=== PATIENT | male | born 1960 | race Caucasian/White ===

== ENCOUNTER 2017-01-01 22:12 | Inpatient (IN) | payer OTHER ==
--- NOTE | 2017-01-01 22:45 | HP ---
CIWA Score - CIWA Score Nausea/Vomitin-Mild Nausea/No Vomiting Muscle Tremors: 3 Anxiety: 2 Agitation: 1-Slight > Activity Paroxysmal Sweats: 1-Minimal Palms Moist Orientation: 1-Uncertain about Date Tacttile Disturbances: 2-Mild Itch/Numbness/Burn Auditory Disturbances: 1-Very Mild Visual Disturbances: 1-Very Mild Sensitivity Headache: 1-Very Mild CIWA-Ar Total Score: 14 Admission ROS BHS - HPI Chief Complaint: WITHDRAWAL SYMPTOMS Allergies/Adverse Reactions: Allergies Allergy/AdvReac Type Severity Reaction Status Date / Time azithromycin Allergy Verified 01/01/17 22:43 History of Present Illness: 56 Y.O. MAN WITH AN EXTENSIVE HISTORY OF ALCOHOL DEPENDENCE IS SEEKING DETOX. THIS IS HIS FIRST ADMISSION TO [facility] BUT HE REPORTS HE COMPLETED DETOX AT ANOTHER FACILITY PREVIOUSLY. LONGEST PERIOD OF SOBRIETY HAS BEEN 2 YEARS. Exam Limitations: No Limitations - Ebola screening Have you traveled outside of the country in the last 21 days: No Have you had contact with anyone from an Ebola affected area: No Do you have a fever: No - Review of Systems Constitutional: Loss of Appetite, Night Sweats, Changes in sleep EENT: reports: Blurred Vision Respiratory: reports: Wheezing Cardiac: reports: No Symptoms Reported GI: reports: No Symptoms Reported : reports: No Symptoms Reported Musculoskeletal: reports: No Symptoms Reported Integumentary: reports: Bruising (RIGHT HAND) Neuro: reports: Headache, Seizure (ETOH RELATED 10 YEARS AGO), Tremors Endocrine: reports: No Symptoms Reported Hematology: reports: No Symptoms Reported Psychiatric: reports: Anxious, Depressed Other Systems: Reviewed and Negative Patient History - Patient Medical History Hx Anemia: No Hx Asthma: Yes Hx Chronic Obstructive Pulmonary Disease (COPD): No Hx Cancer: No Hx Cardiac Disorders: No Hx Congestive Heart Failure: No Hx Hypertension: No Hx Hypercholesterolemia: No Hx Pacemaker: No HX Cerebrovascular Accident: No Hx Seizures: Yes (LAST WAS 10 YEARS PRIOR ) Hx Dementia: No Hx Diabetes: No Hx Gastrointestinal Disorders: No Hx Liver Disease: No Hx Genitourinary Disorders: No Hx Sexually Transmitted Disorders: No Hx Renal Disease (ESRD): No Hx Thyroid Disease: No Hx Human Immunodeficiency Virus (HIV): No Hx Hepatitis C: No Hx Depression: Yes Hx Suicide Attempt: No Hx Bipolar Disorder: No Hx Schizophrenia: No - Patient Surgical History Past Surgical History: No - PPD History Previous Implant?: Yes Documented Results: Negative w/o proof Implanted On Prior R Admission?: No PPD to be Administered?: Yes - Reproductive History Patient is a Female of Child Bearing Age (11 -55 yrs old): No - Smoking Cessation Smoking history: Current every day smoker Aproximately how many cigarettes per day: 10 Hx Chewing Tobacco Use: No Initiated information on smoking cessation: Yes 'Breaking Loose' booklet given: 01/01/17 - Substance & Tx. History Hx Alcohol Use: Yes Hx Substance Use: No Substance Use Type: Alcohol Hx Substance Use Treatment: Yes - Substances Abused Alcohol Route: Oral Frequency: Daily Amount used: 1 PINT OF LIQUOR Age of first use: 14 Date of Last Use: 12/31/16 Family Disease History - Family Disease History Family Disease History: Heart Disease: Father ( ), [place]: Mother () , Brother ([place]- ) Admission Physical Exam [facility] - Vital Signs Vital Signs: Last Vital Signs Temp Pulse Resp BP Pulse Ox 98.9 F 112 H 20 100/77 01/01/17 22:43 01/01/17 22:43 01/01/17 22:43 01/01/17 22:43 - Physical General Appearance: Yes: Tremorous, Anxious HEENTM: Yes: Hearing grossly Normal, Normocephalic, Normal Voice Respiratory: Yes: Chest Non-Tender, Lungs Clear, Normal Breath Sounds, No Respiratory Distress, No Accessory Muscle Use Neck: Yes: No masses,lesions,Nodules, Trachea in good position Breast: Yes: Breast Exam Deferred Cardiology: Yes: Regular Rhythm, S1, S2, Tachycardia Abdominal: Yes: Flat, Soft Genitourinary: Yes: Other (NO COMPLAINTS REPORTED) Back: Yes: Normal Inspection Musculoskeletal: Yes: Gait Steady, Pelvis Stable Extremities: Yes: Normal Inspection, Normal Range of Motion, Non-Tender, Tremors Neurological: Yes: Alert, Normal Mood/Affect, Normal Response Integumentary: Yes: Normal Color, Dry, Warm Lymphatic: Yes: Within Normal Limits - Diagnostic (1) Alcohol dependence with uncomplicated withdrawal Current Visit: Yes Status: Chronic (2) Nicotine dependence Current Visit: Yes Status: Chronic (3) Asthma Current Visit: Yes Status: Chronic Cleared for Admission [facility] - Detox or Rehab [facility] Level of Care: Medically Managed Detox Regimen/Protocol: Librium
[2017-01-01 22:49] VITALS: BMI 21.1
[2017-01-01] MEDS ORDERED: MAGNESIUM CITRATE 300 ML BOTTLE PO PRN (22:59)
[2017-01-01] MEDS ORDERED: MENTHOL/PHENOL 1 EACH UD MM PRN (22:59)
[2017-01-01] MEDS ORDERED: diphenhydrAMINE HCL 50 MG CAPSULE PO PRN (22:59)
[2017-01-01] MEDS ORDERED: LOPERAMIDE HCL 2 MG CAPSULE PO PRN (22:59)
[2017-01-01] MEDS ORDERED: ACETAMINOPHEN 325 MG TABLET (FP) PO PRN (22:59)
[2017-01-01] MEDS ORDERED: chlordiazePOXIDE HCL 25 MG CAPSULE PO PRN (22:59)
[2017-01-01] MEDS ORDERED: MAGNESIUM HYDROX 2400MG/30ML ORAL SUSPENSION 30 ML CUP PO PRN (22:59)
[2017-01-01] MEDS ORDERED: chlordiazePOXIDE HCL 25 MG CAPSULE PO ONE (22:59)
[2017-01-01] MEDS ORDERED: P-EPHED 60MG/TRIPROLIDI 2.5MG TABLET PO PRN (22:59)
[2017-01-01] MEDS ORDERED: guaiFENesin/D-METHORPHAN HB 10 ML UNIT-DOSE CUPS PO PRN (22:59)
[2017-01-01] MEDS ORDERED: hydrOXYzine PAMOATE 50 MG CAPSULE (FP) PO PRN (22:59)
[2017-01-01] MEDS ORDERED: IBUPROFEN 400 MG TABLET (FP) PO PRN (22:59)
[2017-01-02] MEDS: chlordiazePOXIDE HCL 25 MG CAPSULE PO SCH ×5 (05:26→22:35)
[2017-01-02] MEDS ORDERED: ALBUTEROL SO4 2.5/IPRATROPIUM 0.5 INH SOL 3 ML VIAL.NEB. NEB ONE (09:06)
[2017-01-02] MEDS ORDERED: ALBUTEROL SO4 2.5/IPRATROPIUM 0.5 INH SOL 3 ML VIAL.NEB. NEB PRN (09:07)
--- NOTE | 2017-01-02 09:26 | PN ---
S CIWA - CIWA Score Nausea/Vomitin-No Nausea/No Vomiting Muscle Tremors: 4-Moderate,w/Arms Extend Anxiety: 4-Mod. Anxious/Guarded Agitation: 3 Paroxysmal Sweats: 3 Orientation: 0-Oriented Tacttile Disturbances: 0-None Auditory Disturbances: 0-None Visual Disturbances: 0-None Headache: 0-None Present CIWA-Ar Total Score: 14 BHS Progress Note (SOAP) Subjective: Anxiety,tremors,sweating,interrupted sleep,restless. Objective: 01/02/17 09:25 Vital Signs - 8 hr 01/02/17 01/02/17 03:23 06:12 Temperature 99.3 F Pulse Rate 103 H Respiratory 18 18 Rate Blood Pressure 120/79 Lungs : Bilateral mild expiratory wheezing Assessment: 01/02/17 09:25 Withdrawal sx. Asthma Plan: Continue detox Duoned stat then QID symbicort bid
[2017-01-02 10:01] LABS: URINE APPEARANCE CLEAR; URINE BILIRUBIN NEGATIVE (NEGATIVE); URINE BLOOD NEGATIVE (NEGATIVE); URINE COLOR YELLOW; URINE GLUCOSE (UA) NEGATIVE (NEGATIVE); URINE KETONE NEGATIVE (NEGATIVE); URINE LEUK ESTERASE NEGATIVE (NEGATIVE); URINE NITRITE NEGATIVE (NEGATIVE); URINE PROTEIN NEGATIVE (NEGATIVE); URINE UROBILINOGEN 2.0 E.U/dl E.U./dl (0.2-1.0)
[2017-01-02 10:16] LABS: ALBUMIN 3.5 g/dl (3.4-5.0); ALK PHOS 84 U/L (45-117); ANION GAP 13 (8-16); BILIRUBIN,TOTAL 0.4 mg/dL (0.2-1.0); CALCIUM 9.1 mg/dL (8.5-10.1); CO2 29 mmol/L (21-32); CREATININE 0.9 mg/dL (0.7-1.3); GLUCOSE,RANDOM 104 mg/dL (74-106); SGOT/AST 90 U/L (15-37); SGPT/ALT 79 U/L (12-78); TOT PROT 6.6 g/dl (6.4-8.2)
[2017-01-02 10:27] LABS: MCH 32.4 pg (25.7-33.7); MCHC 33.3 g/dl (32.0-35.9); MEAN CELL VOLUME 97.4 fl (80-96); MEAN PLT VOLUME 9.2 fl (7.5-11.1); PLATELET COUNT 179 K/MM3 (134-434); RDW 14.9 % (11.9-15.9); WHITE BLOOD COUNT 3.3 K/mm3 (4.0-10.0)
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
[2017-01-02] MEDS: PRENATAL VITAMINS W/ FOLIC ACID TABLET (FP) PO SCH (10:53)
[2017-01-02] MEDS: BUDESONIDE/FORMETEROL FUMARATE 80/4.5 mcg INHALER IH SCH ×2 (10:54→22:34)
--- NOTE | 2017-01-02 11:39 | EKG ---
Test Reason : Blood Pressure : / mmHG Vent. Rate : 108 BPM Atrial Rate : 108 BPM P-R Int : 150 ms QRS Dur : 084 ms QT Int : 336 ms P-R-T Axes : 059 060 061 degrees QTc Int : 450 ms SINUS TACHYCARDIA OTHERWISE NORMAL ECG NO PREVIOUS ECGS AVAILABLE Confirmed by MORA ADORNO MD ([id number]) on 01/02/2017 11:38:48 AM Referred By: Kasi Curiel Confirmed By:MORA ADORNO MD
[2017-01-02] MEDS ORDERED: POTASSIUM CHLORIDE TABS 20 MEQ TABLET.ER (FP) PO ONE (12:05)
--- NOTE | 2017-01-02 12:06 | PN ---
S Progress Note Note: K+ 2.8,k+ replacement started.we'll repeat labs in two days.
[2017-01-02] MEDS: ALBUTEROL SO4 2.5/IPRATROPIUM 0.5 INH SOL 3 ML VIAL.NEB. NEB SCH ×3 (13:34→22:35)
[2017-01-02] MEDS: THIAMINE HCL 100 MG TABLET (FP) PO SCH (22:35)
[2017-01-02] MEDS: POTASSIUM CHLORIDE TABS 20 MEQ TABLET.ER (FP) PO SCH (22:35)
[2017-01-02] MEDS: ZOLPIDEM TARTRATE 10 MG TABLET (PARK CARE ONLY) PO PRN (22:36)
[2017-01-03] MEDS: MAG HYDROX/AL HYDROX/SIMETH 30 ML UNIT-DOSE CUP PO PRN ×2 (03:39→17:52)
[2017-01-03] MEDS: chlordiazePOXIDE HCL 25 MG CAPSULE PO SCH ×3 (05:12→16:41)
[2017-01-03] MEDS: ALBUTEROL SO4 6.7 GM HFA INHALER IH PRN ×2 (05:13→16:42)
[2017-01-03] MEDS: BUDESONIDE/FORMETEROL FUMARATE 80/4.5 mcg INHALER IH SCH ×2 (10:37→23:01)
[2017-01-03] MEDS: PRENATAL VITAMINS W/ FOLIC ACID TABLET (FP) PO SCH (10:38)
[2017-01-03] MEDS: POTASSIUM CHLORIDE TABS 20 MEQ TABLET.ER (FP) PO SCH ×2 (10:38→23:00)
--- NOTE | 2017-01-03 13:54 | PN ---
S CIWA - CIWA Score Nausea/Vomitin-No Nausea/No Vomiting Muscle Tremors: 4-Moderate,w/Arms Extend Anxiety: 4-Mod. Anxious/Guarded Agitation: 3 Paroxysmal Sweats: 3 Orientation: 0-Oriented Tacttile Disturbances: 0-None Auditory Disturbances: 0-None Visual Disturbances: 0-None Headache: 0-None Present CIWA-Ar Total Score: 14 BHS Progress Note (SOAP) Subjective: Anxiety,tremors,sweating,interrupted sleep,restless. Objective: 01/03/17 13:53 Vital Signs - 8 hr 01/03/17 01/03/17 01/03/17 06:15 09:48 13:08 Temperature 99.1 F 96.9 F L 98.6 F Pulse Rate 109 H 100 H 104 H Respiratory 18 20 18 Rate Blood Pressure 116/76 103/75 122/79 Lungs : Clear to A&P Assessment: 01/03/17 13:54 Withdrawal sx. Plan: Continue detox
[2017-01-03] MEDS: ALBUTEROL SO4 2.5/IPRATROPIUM 0.5 INH SOL 3 ML VIAL.NEB. NEB SCH ×3 (16:09→23:00)
[2017-01-03] MEDS: chlordiazePOXIDE 5 MG CAPSULE PO SCH (23:00)
[2017-01-03] MEDS: THIAMINE HCL 100 MG TABLET (FP) PO SCH (23:00)
[2017-01-03] MEDS: ZOLPIDEM TARTRATE 10 MG TABLET (PARK CARE ONLY) PO PRN (23:16)
[2017-01-04] MEDS: chlordiazePOXIDE 5 MG CAPSULE PO SCH ×3 (05:30→18:27)
[2017-01-04] MEDS: ALBUTEROL SO4 2.5/IPRATROPIUM 0.5 INH SOL 3 ML VIAL.NEB. NEB SCH ×4 (10:05→22:32)
[2017-01-04 10:09] LABS: MCH 33.4 pg (25.7-33.7); MCHC 33.7 g/dl (32.0-35.9); MEAN CELL VOLUME 99.3 fl (80-96); MEAN PLT VOLUME 9.4 fl (7.5-11.1); PLATELET COUNT 221 K/MM3 (134-434); RDW 14.6 % (11.9-15.9); SGOT/AST 36 U/L (15-37); SGPT/ALT 52 U/L (12-78); WHITE BLOOD COUNT 5.6 K/mm3 (4.0-10.0)
[2017-01-04] MEDS: PRENATAL VITAMINS W/ FOLIC ACID TABLET (FP) PO SCH (10:30)
[2017-01-04] MEDS: POTASSIUM CHLORIDE TABS 20 MEQ TABLET.ER (FP) PO SCH ×2 (10:31→22:32)
[2017-01-04] MEDS: BUDESONIDE/FORMETEROL FUMARATE 80/4.5 mcg INHALER IH SCH ×2 (10:31→22:33)
--- NOTE | 2017-01-04 12:21 | EKG ---
Test Reason : Blood Pressure : / mmHG Vent. Rate : 102 BPM Atrial Rate : 102 BPM P-R Int : 148 ms QRS Dur : 080 ms QT Int : 332 ms P-R-T Axes : 051 054 058 degrees QTc Int : 432 ms SINUS TACHYCARDIA OTHERWISE NORMAL ECG WHEN COMPARED WITH ECG OF 01-JAN-2017 23:08, NO SIGNIFICANT CHANGE WAS FOUND Confirmed by MD MRAGI, JARETH ([id number]) on 01/04/2017 12:20:50 PM Referred By: Kasi Curiel Confirmed By:JARETH KISER MD
--- NOTE | 2017-01-04 15:35 | PN ---
BHS Progress Note (SOAP) Subjective: Stomach Cramping, Interrupted Sleep, Tremors. Objective: PT. A & O X 2 (DISORIENTED ABOUT DAY /DATE). PT. OBSERVED AMBULATING ON UNIT. 01/04/17 15:32 Vital Signs Temperature 97.2 F L 01/04/17 13:20 Pulse Rate 105 H 01/04/17 13:20 Respiratory Rate 20 01/04/17 13:20 Blood Pressure 110/71 01/04/17 13:20 O2 Sat by Pulse Oximetry (%) Laboratory Last Values WBC 5.6 K/mm3 (4.0-10.0) D 01/04/17 07:50 RBC 3.31 M/mm3 (4.00-5.60) L 01/04/17 07:50 Hgb 11.1 GM/dL (11.7-16.9) L 01/04/17 07:50 Hct 32.9 % (35.4-49) L 01/04/17 07:50 MCV 99.3 fl (80-96) H 01/04/17 07:50 MCHC 33.7 g/dl (32.0-35.9) 01/04/17 07:50 RDW 14.6 % (11.9-15.9) 01/04/17 07:50 Plt Count 221 K/MM3 (134-434) D 01/04/17 07:50 MPV 9.4 fl (7.5-11.1) 01/04/17 07:50 Sodium 139 mmol/L (136-145) 01/02/17 07:00 Potassium 2.8 mmol/L (3.5-5.1) L* 01/02/17 07:00 Chloride 97 mmol/L (98-107) L 01/02/17 07:00 Carbon Dioxide 29 mmol/L (21-32) 01/02/17 07:00 Anion Gap 13 (8-16) 01/02/17 07:00 BUN 15 mg/dL (7-18) 01/02/17 07:00 Creatinine 0.9 mg/dL (0.7-1.3) 01/02/17 07:00 Creat Clearance w eGFR > 60 (>60) 01/02/17 07:00 Random Glucose 104 mg/dL (74-106) 01/02/17 07:00 Calcium 9.1 mg/dL (8.5-10.1) 01/02/17 07:00 Total Bilirubin 0.4 mg/dL (0.2-1.0) 01/02/17 07:00 AST 36 U/L (15-37) D 01/04/17 07:50 ALT 52 U/L (12-78) D 01/04/17 07:50 Alkaline Phosphatase 84 U/L (45-117) 01/02/17 07:00 Total Protein 6.6 g/dl (6.4-8.2) 01/02/17 07:00 Albumin 3.5 g/dl (3.4-5.0) 01/02/17 07:00 Urine Color Yellow 01/02/17 08:00 Urine Appearance Clear 01/02/17 08:00 Urine pH 6.0 (5.0-8.0) 01/02/17 08:00 Ur Specific [place] 1.020 (1.005-1.025) 01/02/17 08:00 Urine Protein Negative (NEGATIVE) 01/02/17 08:00 Urine Glucose (UA) Negative (NEGATIVE) 01/02/17 08:00 Urine Ketones Negative (NEGATIVE) 01/02/17 08:00 Urine Blood Negative (NEGATIVE) 01/02/17 08:00 Urine Nitrite Negative (NEGATIVE) 01/02/17 08:00 Urine Bilirubin Negative (NEGATIVE) 01/02/17 08:00 Urine Urobilinogen 2.0 e.u/dl E.U./dl (0.2-1.0) 01/02/17 08:00 Ur Leukocyte Esterase Negative (NEGATIVE) 01/02/17 08:00 RPR Titer Nonreactive (NONREACTIVE) 01/02/17 07:00 LABS NOTED. 01/04/17 15:35 Assessment: 01/04/17 15:34 WITHDRAWAL SYMPTOMS. Plan: CONTINUE DETOX.
[2017-01-04] MEDS: ALBUTEROL SO4 6.7 GM HFA INHALER IH PRN ×2 (18:28→22:36)
[2017-01-04] MEDS: NICOTINE 21 MG/24 HOURS TOPICAL PATCH TD SCH (20:45)
[2017-01-04] MEDS: chlordiazePOXIDE HCL 10 MG CAPSULE PO SCH (22:31)
[2017-01-04] MEDS: THIAMINE HCL 100 MG TABLET (FP) PO SCH (22:31)
[2017-01-04] MEDS: ZOLPIDEM TARTRATE 10 MG TABLET (PARK CARE ONLY) PO PRN (22:32)
[2017-01-04] MEDS: MAG HYDROX/AL HYDROX/SIMETH 30 ML UNIT-DOSE CUP PO PRN (23:43)
[2017-01-05] MEDS: chlordiazePOXIDE HCL 10 MG CAPSULE PO SCH ×3 (05:21→17:28)
[2017-01-05] MEDS: ALBUTEROL SO4 6.7 GM HFA INHALER IH PRN ×3 (09:31→22:24)
[2017-01-05] MEDS: ALBUTEROL SO4 2.5/IPRATROPIUM 0.5 INH SOL 3 ML VIAL.NEB. NEB SCH ×3 (10:10→22:25)
[2017-01-05] MEDS: PRENATAL VITAMINS W/ FOLIC ACID TABLET (FP) PO SCH (10:21)
[2017-01-05] MEDS: POTASSIUM CHLORIDE TABS 20 MEQ TABLET.ER (FP) PO SCH ×2 (10:21→22:24)
[2017-01-05] MEDS: NICOTINE 21 MG/24 HOURS TOPICAL PATCH TD SCH (10:21)
[2017-01-05] MEDS: BUDESONIDE/FORMETEROL FUMARATE 80/4.5 mcg INHALER IH SCH ×2 (10:21→22:24)
[2017-01-05] MEDS: MAG HYDROX/AL HYDROX/SIMETH 30 ML UNIT-DOSE CUP PO PRN (10:47)
--- NOTE | 2017-01-05 15:46 | PN ---
BHS Progress Note (SOAP) Subjective: Anxious, sweating,; c/o wheezing r/t asthma (uses albuterol mdi prn) Objective: 01/05/17 15:43 Last Vital Signs Temp Pulse Resp BP Pulse Ox 98.4 F 110 H 18 105/69 01/05/17 13:21 01/05/17 13:21 01/05/17 13:21 01/05/17 13:21 PE: Resp: lungs ctab/l, no adventitious breath sounds CV: s1s2+, apical rate 104 bpm, no m/g/r Laboratory Tests 01/02/17 01/02/17 01/02/17 07:00 07:00 07:00 WBC 3.3 L RBC 3.47 L Hgb 11.3 L Hct 33.8 L MCV 97.4 H MCHC 33.3 RDW 14.9 Plt Count 179 MPV 9.2 Sodium 139 Potassium 2.8 L* Chloride 97 L Carbon Dioxide 29 Anion Gap 13 BUN 15 Creatinine 0.9 Creat Clearance w eGFR > 60 Random Glucose 104 Calcium 9.1 Total Bilirubin 0.4 AST 90 H ALT 79 H Alkaline Phosphatase 84 Total Protein 6.6 Albumin 3.5 Urine Color Urine Appearance Urine pH Ur Specific [place] Urine Protein Urine Glucose (UA) Urine Ketones Urine Blood Urine Nitrite Urine Bilirubin Urine Urobilinogen Ur Leukocyte Esterase RPR Titer Nonreactive 01/02/17 01/04/17 01/04/17 08:00 07:50 07:50 WBC 5.6 D RBC 3.31 L Hgb 11.1 L Hct 32.9 L MCV 99.3 H MCHC 33.7 RDW 14.6 Plt Count 221 D MPV 9.4 Sodium Potassium Chloride Carbon Dioxide Anion Gap BUN Creatinine Creat Clearance w eGFR Random Glucose Calcium Total Bilirubin AST 36 D ALT 52 D Alkaline Phosphatase Total Protein Albumin Urine Color Yellow Urine Appearance Clear Urine pH 6.0 Ur Specific [place] 1.020 Urine Protein Negative Urine Glucose (UA) Negative Urine Ketones Negative Urine Blood Negative Urine Nitrite Negative Urine Bilirubin Negative Urine Urobilinogen 2.0 e.u/dl Ur Leukocyte Esterase Negative RPR Titer 01/04/17 08:50 WBC RBC Hgb Hct MCV MCHC RDW Plt Count MPV Sodium Potassium 4.3 D Chloride Carbon Dioxide Anion Gap BUN Creatinine Creat Clearance w eGFR Random Glucose Calcium Total Bilirubin AST ALT Alkaline Phosphatase Total Protein Albumin Urine Color Urine Appearance Urine pH Ur Specific [place] Urine Protein Urine Glucose (UA) Urine Ketones Urine Blood Urine Nitrite Urine Bilirubin Urine Urobilinogen Ur Leukocyte Esterase RPR Titer Labs noted Assessment: 01/05/17 15:45 Withdrawal symptoms Asthma, mild intermittent (patient c/o wheezing) Plan: Continue detox Asthma, mild intermittent: continue albuterol mdi prn, avoid triggers
[2017-01-05] MEDS: ZOLPIDEM TARTRATE 10 MG TABLET (PARK CARE ONLY) PO PRN (21:55)
[2017-01-05] MEDS: THIAMINE HCL 100 MG TABLET (FP) PO SCH (22:24)
[2017-01-06] MEDS: ALBUTEROL SO4 6.7 GM HFA INHALER IH PRN ×2 (05:45→22:30)
[2017-01-06] MEDS: NICOTINE 21 MG/24 HOURS TOPICAL PATCH TD SCH (09:57)
[2017-01-06] MEDS: ALBUTEROL SO4 2.5/IPRATROPIUM 0.5 INH SOL 3 ML VIAL.NEB. NEB SCH (09:57)
[2017-01-06] MEDS: POTASSIUM CHLORIDE TABS 20 MEQ TABLET.ER (FP) PO SCH ×2 (09:57→22:28)
[2017-01-06] MEDS: PRENATAL VITAMINS W/ FOLIC ACID TABLET (FP) PO SCH (09:57)
[2017-01-06] MEDS: BUDESONIDE/FORMETEROL FUMARATE 80/4.5 mcg INHALER IH SCH ×2 (09:58→22:28)
--- NOTE | 2017-01-06 14:33 | PN ---
BHS Progress Note (SOAP) Subjective: Pt. has completed detox,however bed in rehab will be available tomorrow. Objective: 01/06/17 14:32 Vital Signs - 8 hr 01/06/17 01/06/17 09:43 13:20 Temperature 97.1 F L 96.8 F L Pulse Rate 104 H 100 H Respiratory 20 18 Rate Blood Pressure 133/84 112/74 Assessment: 01/06/17 14:32 ALC for rehab Plan: D/C to rehab when bed is available
[2017-01-06] MEDS: THIAMINE HCL 100 MG TABLET (FP) PO SCH (22:29)
[2017-01-07 06:18] VITALS: TEMP 97.5
[2017-01-07 09:42] VITALS: BP 104/72; PULSE 107
--- NOTE | 2017-01-07 10:23 | DS ---
[facility] Detox Discharge Summary Admission Date: 01/01/17 Discharge Date: 01/07/17 - History Present History: Alcohol Dependence Additional Comments: DETOX COMPLETED. ALERT O X 3. NAD. Pertinent Past History: ASTHMA - Physical Exam Results Vital Signs: Vital Signs Temperature 97.5 F L 01/07/17 09:40 Pulse Rate 107 H 01/07/17 09:40 Respiratory Rate 18 01/07/17 09:40 Blood Pressure 104/72 01/07/17 09:40 O2 Sat by Pulse Oximetry (%) Pertinent Admission Physical Exam Findings: WITHDRAWAL SX - Treatment Hospital Course: Detox Protocol Followed, Detoxed Safely, Responded well, Discharged Condition Good - Medication Discharge Medications: Ambulatory Orders NK [No Known Home Medication] 01/02/17 - Diagnosis (1) Nicotine dependence Current Visit: Yes Status: Acute Qualifiers: Nicotine product type: cigarettes Substance use status: in withdrawal Qualified Code(s): F17.213 - Nicotine dependence, cigarettes, with withdrawal (2) Alcohol dependence with uncomplicated withdrawal Current Visit: Yes Status: Acute (3) Asthma Current Visit: Yes Status: Chronic Qualifiers: Asthma severity: mild intermittent Asthma complication type: uncomplicated Qualified Code(s): J45.20 - Mild intermittent asthma, uncomplicated - AMA Did Patient Leave Against Medical Advice: No
[2017-01-07] MEDS: PRENATAL VITAMINS W/ FOLIC ACID TABLET (FP) PO SCH (10:30)
[2017-01-07] MEDS: POTASSIUM CHLORIDE TABS 20 MEQ TABLET.ER (FP) PO SCH (10:30)
[2017-01-07] MEDS: BUDESONIDE/FORMETEROL FUMARATE 80/4.5 mcg INHALER IH SCH (10:30)
[2017-01-07] MEDS: NICOTINE 21 MG/24 HOURS TOPICAL PATCH TD SCH (10:31)
== END 2017-01-07 11:10 | disposition other institution (70) | DRG 775 ==
LOC: YASAS 22:12 → Y3N 22:49
PROVIDERS: ADMIT Internal Medicine Addiction Medicine; ATTEND Internal Medicine
PROC: HZ2ZZZZ Detoxification Services for Substance Abuse Treatment (ICD-10-PCS; principal; 2017-01-01)
DX: F10.230 Alcohol dependence with withdrawal, uncomplicated (principal); F10.24 Alcohol dependence with alcohol-induced mood disorder; F10.282 Alcohol dependence with alcohol-induced sleep disorder; F17.213 Nicotine dependence, cigarettes, with withdrawal; J45.20 Mild intermittent asthma, uncomplicated; Z86.69 Personal history of other diseases of the nervous system and sense organs
CPT/HCPCS: 36415; 80053; 81003; 84132; 84450; 84460; 85027; 86593; 93005; 93010; 94640

== ENCOUNTER 2017-01-07 11:14 | Inpatient (IN) | payer OTHER ==
[2017-01-07] MEDS ORDERED: MAGNESIUM HYDROX 2400MG/30ML ORAL SUSPENSION 30 ML CUP PO PRN (12:25)
[2017-01-07] MEDS ORDERED: LOPERAMIDE HCL 2 MG CAPSULE PO PRN (12:25)
[2017-01-07] MEDS ORDERED: P-EPHED 60MG/TRIPROLIDI 2.5MG TABLET PO PRN (12:25)
[2017-01-07] MEDS ORDERED: ACETAMINOPHEN 325 MG TABLET (FP) PO PRN (12:25)
[2017-01-07] MEDS ORDERED: MAGNESIUM CITRATE 300 ML BOTTLE PO PRN (12:25)
[2017-01-07] MEDS ORDERED: MENTHOL/PHENOL 1 EACH UD MM PRN (12:25)
[2017-01-07] MEDS ORDERED: IBUPROFEN 400 MG TABLET (FP) PO PRN (12:25)
[2017-01-07] MEDS ORDERED: guaiFENesin/D-METHORPHAN HB 10 ML UNIT-DOSE CUPS PO PRN (12:25)
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
--- NOTE | 2017-01-07 16:20 | HP ---
[facility] Rehab Assess/Revision - Admission History Admitted to Rehab from: [facility] Date of Admission to Rehab: 01/07/17 - Vital signs Vital Signs: Vital Signs Period Temp Pulse Resp BP Sys/Stokes Pulse Ox Last 24 Hr 98.6 F 90 19 114/66 - Findings Detox History & Physical reviewed: Yes Concur with findings: Yes Comments/Additional Findings: transferred from detox to rehab admission as per protocol
[2017-01-07] MEDS: ALBUTEROL SO4 6.7 GM HFA INHALER IH PRN (22:04)
[2017-01-07] MEDS: THIAMINE HCL 100 MG TABLET (FP) PO SCH (22:04)
[2017-01-08] MEDS: PRENATAL VITAMINS W/ FOLIC ACID TABLET (FP) PO SCH (10:11)
[2017-01-08] MEDS ORDERED: PT OWN MED DRAWER 7, Y5N ONE ×2 (18:50→22:39)
[2017-01-08] MEDS: ALBUTEROL SO4 6.7 GM HFA INHALER IH PRN ×2 (18:50→22:38)
[2017-01-08] MEDS: THIAMINE HCL 100 MG TABLET (FP) PO SCH (21:40)
[2017-01-09] MEDS: PRENATAL VITAMINS W/ FOLIC ACID TABLET (FP) PO SCH (09:52)
[2017-01-09] MEDS: ALBUTEROL SO4 6.7 GM HFA INHALER IH PRN ×3 (17:04→23:45)
[2017-01-09] MEDS ORDERED: PT OWN MED DRAWER 7, Y5N ONE ×3 (17:05→23:45)
[2017-01-09] MEDS: THIAMINE HCL 100 MG TABLET (FP) PO SCH (21:22)
[2017-01-10] MEDS: PRENATAL VITAMINS W/ FOLIC ACID TABLET (FP) PO SCH (10:52)
[2017-01-10] MEDS: THIAMINE HCL 100 MG TABLET (FP) PO SCH (22:22)
[2017-01-10] MEDS ORDERED: PT OWN MED DRAWER 7, Y5N ONE (23:23)
[2017-01-10] MEDS: ALBUTEROL SO4 6.7 GM HFA INHALER IH PRN (23:23)
[2017-01-11] MEDS ORDERED: PT OWN MED DRAWER 7, Y5N ONE (10:00)
[2017-01-11] MEDS: PRENATAL VITAMINS W/ FOLIC ACID TABLET (FP) PO SCH (10:00)
[2017-01-11] MEDS: ALBUTEROL SO4 6.7 GM HFA INHALER IH PRN (10:01)
[2017-01-11] MEDS: THIAMINE HCL 100 MG TABLET (FP) PO SCH (21:41)
[2017-01-11] MEDS: ARTIFICIAL TEARS (POLYVINYL ALCOHOL 1.4%) OPTH DROPS OU PRN (21:59)
[2017-01-12] MEDS: PRENATAL VITAMINS W/ FOLIC ACID TABLET (FP) PO SCH (09:54)
[2017-01-12] MEDS: THIAMINE HCL 100 MG TABLET (FP) PO SCH (22:22)
[2017-01-13] MEDS: PRENATAL VITAMINS W/ FOLIC ACID TABLET (FP) PO SCH (10:00)
[2017-01-13] MEDS: THIAMINE HCL 100 MG TABLET (FP) PO SCH (21:32)
[2017-01-13] MEDS: ALBUTEROL SO4 6.7 GM HFA INHALER IH PRN (22:15)
[2017-01-13] MEDS ORDERED: PT OWN MED DRAWER 7, Y5N ONE (22:15)
[2017-01-14] MEDS: PRENATAL VITAMINS W/ FOLIC ACID TABLET (FP) PO SCH (10:09)
[2017-01-14] MEDS: ALBUTEROL SO4 6.7 GM HFA INHALER IH PRN (21:21)
[2017-01-14] MEDS: THIAMINE HCL 100 MG TABLET (FP) PO SCH (21:21)
[2017-01-14] MEDS ORDERED: PT OWN MED DRAWER 7, Y5N ONE (21:21)
[2017-01-15] MEDS: PRENATAL VITAMINS W/ FOLIC ACID TABLET (FP) PO SCH (09:49)
[2017-01-15] MEDS: THIAMINE HCL 100 MG TABLET (FP) PO SCH (21:32)
[2017-01-16] MEDS: ALBUTEROL SO4 6.7 GM HFA INHALER IH PRN ×2 (09:51→21:13)
[2017-01-16] MEDS: PRENATAL VITAMINS W/ FOLIC ACID TABLET (FP) PO SCH (09:51)
[2017-01-16] MEDS ORDERED: PT OWN MED DRAWER 7, Y5N ONE ×2 (09:51→21:12)
[2017-01-16] MEDS: THIAMINE HCL 100 MG TABLET (FP) PO SCH (21:12)
[2017-01-17] MEDS: PRENATAL VITAMINS W/ FOLIC ACID TABLET (FP) PO SCH (10:03)
[2017-01-17] MEDS: ALBUTEROL SO4 6.7 GM HFA INHALER IH PRN (18:51)
[2017-01-17] MEDS: MAG HYDROX/AL HYDROX/SIMETH 30 ML UNIT-DOSE CUP PO PRN (19:49)
[2017-01-17] MEDS: THIAMINE HCL 100 MG TABLET (FP) PO SCH (21:54)
[2017-01-18] MEDS: PRENATAL VITAMINS W/ FOLIC ACID TABLET (FP) PO SCH (09:45)
[2017-01-18] MEDS: THIAMINE HCL 100 MG TABLET (FP) PO SCH (21:24)
[2017-01-18] MEDS: ALBUTEROL SO4 6.7 GM HFA INHALER IH PRN (21:24)
[2017-01-19] MEDS: PRENATAL VITAMINS W/ FOLIC ACID TABLET (FP) PO SCH (09:42)
[2017-01-19] MEDS: THIAMINE HCL 100 MG TABLET (FP) PO SCH (21:35)
[2017-01-19] MEDS: ALBUTEROL SO4 6.7 GM HFA INHALER IH PRN (21:35)
[2017-01-20] MEDS: PRENATAL VITAMINS W/ FOLIC ACID TABLET (FP) PO SCH (10:02)
[2017-01-20] MEDS: ALBUTEROL SO4 6.7 GM HFA INHALER IH PRN (21:37)
[2017-01-20] MEDS: THIAMINE HCL 100 MG TABLET (FP) PO SCH (21:37)
[2017-01-21] MEDS: ALBUTEROL SO4 6.7 GM HFA INHALER IH PRN ×2 (10:04→21:23)
[2017-01-21] MEDS: PRENATAL VITAMINS W/ FOLIC ACID TABLET (FP) PO SCH (10:04)
[2017-01-21] MEDS: THIAMINE HCL 100 MG TABLET (FP) PO SCH (21:23)
[2017-01-22] MEDS: PRENATAL VITAMINS W/ FOLIC ACID TABLET (FP) PO SCH (10:13)
[2017-01-22] MEDS: ALBUTEROL SO4 6.7 GM HFA INHALER IH PRN (21:08)
[2017-01-22] MEDS: THIAMINE HCL 100 MG TABLET (FP) PO SCH (21:08)
[2017-01-23] MEDS: PRENATAL VITAMINS W/ FOLIC ACID TABLET (FP) PO SCH (10:17)
[2017-01-23] MEDS: THIAMINE HCL 100 MG TABLET (FP) PO SCH (21:14)
[2017-01-23] MEDS: ALBUTEROL SO4 6.7 GM HFA INHALER IH PRN (21:14)
[2017-01-24] MEDS: PRENATAL VITAMINS W/ FOLIC ACID TABLET (FP) PO SCH (09:58)
[2017-01-24] MEDS: THIAMINE HCL 100 MG TABLET (FP) PO SCH (21:56)
[2017-01-24] MEDS: ALBUTEROL SO4 6.7 GM HFA INHALER IH PRN (22:02)
[2017-01-25] MEDS: PRENATAL VITAMINS W/ FOLIC ACID TABLET (FP) PO SCH (10:17)
[2017-01-25] MEDS: THIAMINE HCL 100 MG TABLET (FP) PO SCH (21:14)
[2017-01-25] MEDS: ALBUTEROL SO4 6.7 GM HFA INHALER IH PRN (21:14)
[2017-01-26] MEDS: PRENATAL VITAMINS W/ FOLIC ACID TABLET (FP) PO SCH (09:59)
[2017-01-26] MEDS: THIAMINE HCL 100 MG TABLET (FP) PO SCH (21:32)
[2017-01-26] MEDS: diphenhydrAMINE HCL 50 MG CAPSULE PO PRN (21:32)
[2017-01-26] MEDS: ALBUTEROL SO4 6.7 GM HFA INHALER IH PRN (21:34)
[2017-01-27] MEDS: PRENATAL VITAMINS W/ FOLIC ACID TABLET (FP) PO SCH (10:16)
[2017-01-27] MEDS: ALBUTEROL SO4 6.7 GM HFA INHALER IH PRN (21:22)
[2017-01-27] MEDS: THIAMINE HCL 100 MG TABLET (FP) PO SCH (21:22)
[2017-01-28] MEDS ORDERED: COLLOIDAL OATMEAL 1 BAR EACH TP PRN (06:45)
[2017-01-28] MEDS: PRENATAL VITAMINS W/ FOLIC ACID TABLET (FP) PO SCH (10:02)
[2017-01-28] MEDS: ALBUTEROL SO4 6.7 GM HFA INHALER IH PRN (21:55)
[2017-01-28] MEDS: THIAMINE HCL 100 MG TABLET (FP) PO SCH (21:55)
[2017-01-28] MEDS: diphenhydrAMINE HCL 50 MG CAPSULE PO PRN (22:16)
[2017-01-29] MEDS: PRENATAL VITAMINS W/ FOLIC ACID TABLET (FP) PO SCH (10:15)
[2017-01-29] MEDS ORDERED: PT OWN MED DRAWER 7, Y5N ONE ×2 (21:25→21:27)
[2017-01-29] MEDS: ALBUTEROL SO4 6.7 GM HFA INHALER IH PRN (21:27)
[2017-01-29] MEDS: THIAMINE HCL 100 MG TABLET (FP) PO SCH (21:27)
[2017-01-29] MEDS: ARTIFICIAL TEARS (POLYVINYL ALCOHOL 1.4%) OPTH DROPS OU PRN (21:28)
[2017-01-29] MEDS: diphenhydrAMINE HCL 50 MG CAPSULE PO PRN (21:31)
[2017-01-30] MEDS: PRENATAL VITAMINS W/ FOLIC ACID TABLET (FP) PO SCH (10:16)
[2017-01-30] MEDS: MAG HYDROX/AL HYDROX/SIMETH 30 ML UNIT-DOSE CUP PO PRN (20:10)
[2017-01-30] MEDS: ARTIFICIAL TEARS (POLYVINYL ALCOHOL 1.4%) OPTH DROPS OU PRN (22:08)
[2017-01-30] MEDS: diphenhydrAMINE HCL 50 MG CAPSULE PO PRN (22:08)
[2017-01-30] MEDS: THIAMINE HCL 100 MG TABLET (FP) PO SCH (22:08)
[2017-01-31] MEDS: PRENATAL VITAMINS W/ FOLIC ACID TABLET (FP) PO SCH (10:17)
[2017-01-31] MEDS: MAG HYDROX/AL HYDROX/SIMETH 30 ML UNIT-DOSE CUP PO PRN (19:59)
[2017-01-31] MEDS: diphenhydrAMINE HCL 50 MG CAPSULE PO PRN (21:45)
[2017-01-31] MEDS: THIAMINE HCL 100 MG TABLET (FP) PO SCH (21:45)
[2017-02-01] MEDS: ALBUTEROL SO4 6.7 GM HFA INHALER IH PRN ×2 (10:03→21:53)
[2017-02-01] MEDS: PRENATAL VITAMINS W/ FOLIC ACID TABLET (FP) PO SCH (10:03)
[2017-02-01] MEDS: THIAMINE HCL 100 MG TABLET (FP) PO SCH (21:50)
[2017-02-01] MEDS: diphenhydrAMINE HCL 50 MG CAPSULE PO PRN (21:50)
[2017-02-02] MEDS: PRENATAL VITAMINS W/ FOLIC ACID TABLET (FP) PO SCH (09:27)
[2017-02-02] MEDS: ALBUTEROL SO4 6.7 GM HFA INHALER IH PRN (21:19)
[2017-02-02] MEDS: diphenhydrAMINE HCL 50 MG CAPSULE PO PRN (21:19)
[2017-02-02] MEDS: THIAMINE HCL 100 MG TABLET (FP) PO SCH (21:19)
[2017-02-03 06:45] VITALS: PULSE 82
--- NOTE | 2017-02-03 08:08 | PN ---
Psychiatric Progress Note Vital Signs: Vital Signs Period Temp Pulse Resp BP Sys/Stokes Pulse Ox Last 24 Hr 97.6 F 82 18-18 134/84 Date of Session: 02/03/17 Chief Complaint:: Discharge Note HPI: Patient addressing Alcohol Dependence comorbid with Nicotine Dependence and Alcohol-Induced Mood Disorder ROS: Asthma Current Medications: Active Medications Generic Name Dose Route Start Last Admin Trade Name Freq PRN Reason Stop Dose Admin Acetaminophen 650 mg 01/07/17 12:25 Tylenol - PO Q4H PRN FEVER OR PAIN Al Hydroxide/Mg Hydroxide 30 ml 01/07/17 12:25 01/31/17 19:59 Mylanta Oral Suspension - PO 30 ml Q6H PRN Administration DYSPEPSIA Albuterol Sulfate 2 puff 01/07/17 22:06 02/02/17 21:19 Ventolin Hfa Inhaler - IH 2 puff Q4H PRN Administration SHORT OF BREATH/WHEEZING Artificial Tears 1 drop 01/11/17 20:37 01/30/17 22:08 Artificial Tears OU 1 drop QID PRN Administration DRY EYES Colloidal Oatmeal 1 applic 01/28/17 06:45 01/28/17 07:02 Aveeno Soap - TP 1 applic DAILY PRN Administration HYGEINE Diphenhydramine HCl 50 mg 01/07/17 12:25 02/02/17 21:19 Benadryl - PO 50 mg HSMR1 PRN Administration FOR ITCHING Eucalyptus/Menthol/Phenol/Sorbitol 1 each 01/07/17 12:25 Cepastat Lozenge - MM Q4H PRN SORE THROAT Guaifenesin 10 ml 01/07/17 12:25 Robitussin Dm - PO Q6H PRN COUGH Ibuprofen 400 mg 01/07/17 12:25 Motrin - PO Q6H PRN PAIN Loperamide HCl 4 mg 01/07/17 12:25 Imodium - PO Q6H PRN DIARRHEA Magnesium Hydroxide 30 ml 01/07/17 12:25 Milk Of Magnesia - PO DAILY PRN CONSTIPATION Multivit/Folic Acid/Iron 1 tab 01/08/17 10:00 02/02/17 09:27 Vitamins (Sjr) - PO 1 tab DAILY IVAN Administration Pseudoephedrine/Triprolidine 1 combo 01/07/17 12:25 Actifed - PO TID PRN NASAL CONGESTION Thiamine HCl 100 mg 01/07/17 22:00 02/02/17 21:19 Vitamin B1 - PO 100 mg HS IVAN Administration Current Side Effect: No Lab tests ordered: Yes Lab tests reviewed: Yes Provider note:: Patient will complete this program on 02/04/17. He has met his treatment goals and will continue to address his issues by going to . Told conventional underwriter that from his participation in this program, he has learned that [facility] for him and he has to move out of there. He is stable for discharge on 02/04/17 Total face to face time:: 35 Mental Status Exam - Mental Status Exam Alert and Oriented to: Time, Place, Person Cognitive Function: Fair Patient Appearance: Well Groomed Mood: Hopeful, Euthymic Affect: Appropriate Patient Behavior: Cooperative Speech Pattern: Clear Voice Loudness: Normal Thought Process: Intact, Goal Oriented Thought Disorder: Not Present Hallucinations: Denies Suicidal Ideation: Denies Homicidal Ideation: Denies Insight/Judgement: Fair Sleep: Fair Appetite: Good Muscle strength/Tone: Normal Gait/Station: Normal Psychiatric Treatment Plan - Problem List (1) Alcohol dependence with uncomplicated withdrawal Current Visit: No (2) Nicotine dependence Current Visit: No Qualifiers: Nicotine product type: cigarettes Substance use status: in withdrawal Qualified Code(s): F17.213 - Nicotine dependence, cigarettes, with withdrawal (3) Alcohol-induced mood disorder Current Visit: No (4) Asthma Current Visit: No Qualifiers: Asthma severity: mild intermittent Asthma complication type: uncomplicated Qualified Code(s): J45.20 - Mild intermittent asthma, uncomplicated Initial treatment plan: Patient will be dischargedtomorrow and referred to for outpatient treatment
[2017-02-03] MEDS: PRENATAL VITAMINS W/ FOLIC ACID TABLET (FP) PO SCH (10:12)
[2017-02-03] MEDS: diphenhydrAMINE HCL 50 MG CAPSULE PO PRN (21:25)
[2017-02-03] MEDS: THIAMINE HCL 100 MG TABLET (FP) PO SCH (21:25)
[2017-02-04 06:48] VITALS: BP 148/79; TEMP 98.2
[2017-02-04] MEDS: PRENATAL VITAMINS W/ FOLIC ACID TABLET (FP) PO SCH (09:30)
== END 2017-02-04 09:35 | disposition home or self-care (01) | DRG 772 ==
LOC: YASAS 11:14 → Y3W 11:15
PROVIDERS: ADMIT Psychiatry & Neurology Psychiatry; ATTEND Psychiatry & Neurology Psychiatry
PROC: HZ42ZZZ Group Counseling for Substance Abuse Treatment, Cognitive-Behavioral (ICD-10-PCS; principal; 2017-01-07)
DX: F10.20 Alcohol dependence, uncomplicated (principal); F10.24 Alcohol dependence with alcohol-induced mood disorder; F17.213 Nicotine dependence, cigarettes, with withdrawal; J45.20 Mild intermittent asthma, uncomplicated